=== PATIENT | female | born 1955 | race Caucasian/White ===

== ENCOUNTER 2023-01-06 09:50 | Emergency (ER) | payer MEDICARE ==
[~2023-01-06] VITALS: Ht 157.5 cm; Wt 49.9 kg
[2023-01-06 09:50] VITALS: BP_SYST 172
--- NOTE | 2023-01-06 09:50 | NUR ---
CODE STROKE CALLED
--- NOTE | 2023-01-06 09:50 | NUR ---
TO CT VIA [facility].
--- NOTE | 2023-01-06 09:50 | NUR ---
0949 : Patient to ER bed 01 to gow for evaluation. Side rails up. Report given to Tamar KAPLAN .
--- NOTE | 2023-01-06 09:50 | NUR ---
Dr Mary evaluating patient at bedside
[2023-01-06] MEDS ORDERED: iohexoL 350 mgI/mL, 100 ML INFUS..BTL IV ONE (10:02)
--- NOTE | 2023-01-06 10:08 | NUR ---
EMMETT RIGGS REQUESTED, ORDERED BY DR. WHITE
--- NOTE | 2023-01-06 10:10 | NUR ---
DR. WHITE AT . [facility] STROKE SCALE:26
--- NOTE | 2023-01-06 10:17 | NUR ---
DR. CORTÉS, [facility] DOC, CALLED BACK FOR PEER TO PEER WITH DR. WHITE
--- NOTE | 2023-01-06 10:20 | NUR ---
SASCHA-DR. CORTÉS VIA NEURO TELE EVAL. STROKE SCALE: 16
[2023-01-06] MEDS ORDERED: PANTOPRAZOLE SODIUM 80 MG in NS 100 ML IV ONE (10:30)
[2023-01-06 10:54] LABS: BASOPHILS # (AUTO) 0.1 K/uL (0.0-0.2); BASOPHILS % (AUTO) 0.7 % (0.0-2.0); EOSINOPHILS % (AUTO) 0.1 % (0.0-4.0); LYMPHOCYTES # (AUTO) 0.6 K/uL (1.0-5.5); LYMPHOCYTES % (AUTO) 5.6 % (20.5-51.5); MONOCYTES # (AUTO) 0.5 K/uL (0.0-1.0); NEUTROPHILS # (AUTO) 10.1 K/uL (1.8-7.7); RED BLOOD CELL COUNT(AUTO) 3.71 MIL/uL (4.2-6.2)
[2023-01-06 11:04] LABS: HEMATOCRIT 35.4 % (36-48); HEMOGLOBIN 12.2 g/dL (12.0-16.0); MEAN CORPUSCULAR HEMOGLOBIN 33 pg (27-31); MEAN CORPUSCULAR HGB CONC 34 % (32-36); MEAN CORPUSCULAR VOLUME 96 fL (79.0-98.0); NEUTROPHILS % (AUTO) 89.6 % (40.0-70.0); PLATELET COUNT (AUTO) 391 K/uL (130-430); RED CELL DISTRIBUTION WIDTH 12.5 % (9.0-15.0); WHITE BLOOD COUNT (AUTO) 11.2 K/uL (4.8-10.8)
[2023-01-06 11:20] LABS: ALANINE AMINOTRANSFERASE 14 U/L (12-78); ALBUMIN 3.6 g/dL (3.4-4.8); ANION GAP 7 (5-15); ASPARTATE AMINOTRANSFERASE 18 U/L (10-37); CREATININE 0.77 mg/dL (0.55-1.30); GFR AFRICAN AMERICAN 96 mL/min (>90); GLUCOSE 103 mg/dL (70-99); TOTAL BILIRUBIN 0.5 mg/dL (0.0-1.0); UREA NITROGEN, BLOOD 24 mg/dL (8-21)
[2023-01-06 11:30] LABS: CHLORIDE 84 mmol/L (98-107)
--- NOTE | 2023-01-06 12:30 | NUR ---
DR. CORTÉS ON NEURO TELE W/ DR. WHITE AND PT'S SISTER TO ESTABLISH PT BASELINE. PT THROMBECTOMY SUGGESTED BY DR. CORTÉS TO BE DONE AT [facility]. NO FURTHER ORDERS IN ED. COMFORT MEASURES AND SUPPORTIVE CARE CONTINUED. PT'S SISTER AT UPDATED.
--- NOTE | 2023-01-06 13:13 | NUR ---
PT BELONGINGS TAKEN HOME BY DAUGHTER MICHELA W/ HOLLIDAY METAL NECKLACE. HOLLIDAY METAL FRAMED GLASSES KEPT BY PT.
--- NOTE | 2023-01-06 13:14 | NUR ---
KAVITA WILSON- SISTER [phone] MIRANDA NGUYEN-DAUGHTER [phone]
--- NOTE | 2023-01-06 13:15 | NUR ---
DAUGHTER MICHELA STATES PT IS A DAILY CIGARETTE SMOKER. STATES PT DRINKS WINE DAILY "JUST A LITTLE" SHE POINTS TO HER 28OZ WATER BOTTLE TO INDICATE AVERAGE VOLUME OF WHAT PT CONSUMES EVERY EVENING.
--- NOTE | 2023-01-06 13:21 | NUR ---
DR. MADDEN, [facility] DOC, CALLED BACK FOR PEER TO PEER.
--- NOTE | 2023-01-06 14:12 | NUR ---
TRANSFER CENTER [facility] ED DR. MANRIQUEZ [phone] LVL, 2 STROKE
[2023-01-06 15:40] VITALS: BP_SYST 188
--- NOTE | 2023-01-06 15:40 | NUR ---
PT REMAINS GUARDED. NO NEURO DECLINE THROUGHOUT ED COURSE. REPORT GIVEN TO TRANSPORT TEAM-CCT DAVID KAPLAN AND ALEC KAPLAN ED-[facility]. DR MITRA BURNHAM MD.
== END 2023-01-06 15:40 | disposition short-term general hospital (02) ==
LOC: SED 09:50
DX: I63.9 Cerebral infarction, unspecified (principal); K92.2 Gastrointestinal hemorrhage, unspecified; R41.82 Altered mental status, unspecified; I10 Essential (primary) hypertension; E78.5 Hyperlipidemia, unspecified; F17.200 Nicotine dependence, unspecified, uncomplicated; Z79.899 Other long term (current) drug therapy
CPT/HCPCS: 99291; 70496; 96365; 71045; 80053; 82962; 83880; 85025; 85379; 84484; 36415; 93005; 70450; 76376; Q9967; C9113